=== PATIENT | male | born 1985 | race Two or more races ===

== ENCOUNTER 2018-02-23 04:37 | Emergency (ER) | payer OTHER ==
[~2018-02-23] VITALS: Ht 170.2 cm; Wt 77.1 kg
[~2018-02-23 04:37] MED LIST: BACITRACIN15 GM TOPIC; IBUPROFEN600 MG ORAL; NKM
[2018-02-23 04:55] VITALS: BP 155/104
--- NOTE | 2018-02-23 04:57 | Emergency Room Report ---
History of Present Illness General Chief Complaint: Pain Source: Patient Present Illness HPI Is a 32-year-old male who is right-hand dominant. He presents with chief complaint of right hand swelling and pain. Onset yesterday. He was arrested yesterday when he woke up in [place] he said he noticed some pain in his right and that finger. Now is getting more swollen and painful. No trauma that he can think of. Also pain radiating to his body. No fever chills but no nausea no vomiting. Pain is 7 out of 10. Worse with movement. No other injury. Allergies: Coded Allergies: No Known Allergies (Unverified , 09/04/15) Patient History Past Medical History: see triage record, old chart reviewed Past Surgical History: none Pertinent Family History: none Social History: Denies: smoking Immunizations: other Reviewed Nursing Documentation: PMH: Agreed; PSxH: Agreed Nursing Documentation-PMH Hx Asthma: Yes - asthma Review of Systems Eye: Denies: eye pain, blurred vision ENT: Denies: ear pain, nose congestion, throat swelling Respiratory: Denies: cough, shortness of breath Cardiovascular: Denies: chest pain, palpitations Gastrointestinal: Denies: abdominal pain, diarrhea, nausea, vomiting Musculoskeletal: Reports: joint pain, joint swelling; Denies: back pain Skin: Denies: rash Neurological: Denies: headache, numbness Endocrine: Denies: increased thirst, increased urine Hematologic/Lymphatic: Denies: easy bruising All Other Systems: negative except mentioned in HPI Physical Exam Vital Signs Date Time Temp Pulse Resp B/P (MAP) Pulse Ox O2 Delivery O2 Flow Rate FiO2 02/23/18 04:39 98.1 100 14 155/104 97 Room Air 98.1 vitals with high blood pressure Sp02 EP Interpretation: reviewed, normal General Appearance: well appearing, no apparent distress, alert Head: normocephalic, atraumatic Eyes: bilateral eye PERRL, bilateral eye EOMI ENT: hearing grossly normal, normal pharynx Neck: full range of motion, supple, no meningismus Respiratory: chest non-tender, lungs clear, normal breath sounds Cardiovascular #1: regular rate, rhythm, no murmur Gastrointestinal: normal bowel sounds, non tender, no mass, no organomegaly, no bruit, non-distended Musculoskeletal: back normal, gait/station normal, normal range of motion, other - Right hand: Some mild edema and tenderness. Most of the pain appeared to be over the proximal phalanx the dorsal aspect of his index finger. Tender to palpation. Able to bend the finger. Neurologic: normal inspection, alert, oriented x3 Psychiatric: mood/affect normal Skin: warm/dry Procedures Incision and Drainage Incision and Drainage : Consent: Verbal Site: right index finger Blade Size: 11 I & D Procedure: betadine prep, sterile drapes applied, sterile dressing applied Anesthesia: 1% Lidocaine Volume Anesthetic (ccs): 2 Patient Tolerated: Well Complications: None Progress Area clean with Betadine. Local anesthetic 1% lidocaine without epinephrine injected. I made a 1 cm incision. There was small amount of purulent discharge. Patient felt better. No complication. Patient tolerated procedure without a problem. Dressing done. Medical Decision Making Diagnostic Impression: Primary Impression: Abscess of finger of right hand ER Course Patient with an abscess of his right index finger. No deep infection indicate tenosynovitis. Other X-Ray Diagnostic Results Other X-Ray Diagnostic Results : X-Ray ordered: right-hand x-rays # of Views/Limited Vs Complete: 3 View Indication: Pain EP Interpretation: Yes Interpretation: no dislocation, no soft tissue swelling, other - old fifth metacarpal bone fracture Impression: No acute disease Electronically Signed by: Kamari Chung MD Last Vital Signs Date Time Temp Pulse Resp B/P (MAP) Pulse Ox O2 Delivery O2 Flow Rate FiO2 02/23/18 04:55 98.1 100 14 155/104 97 Room Air 98.1 Status: improved Disposition: HOME, SELF-CARE Condition: Stable Scripts Ibuprofen* (MOTRIN*) 600 Mg Tablet 600 MG ORAL THREE TIMES A DAY, #30 TAB 0 Refills Prov: Kamari Chung MD 02/23/18 Trimethoprim/Sulfamethoxazole 160/800* (BACTRIM DS TABLET*) 1 Each Tablet 1 TAB ORAL Q12H, #14 TAB 0 Refills Prov: Kamari Chung MD 02/23/18 Additional Instructions: Follow-up with your DrJorge Luis in 2-3 days for recheck. Return if symptom worsen. Kamari Chung MD Feb 23, 2018 04:57
[2018-02-23] MEDS ORDERED: BACTRIM DS TAB1 EAC1 ORAL (05:40)
[2018-02-23] MEDS ORDERED: IBUPROFEN600 MG ORAL (05:40)
[2018-02-23] MEDS ORDERED: Norco 5mg/325mg tab ORAL ONE (05:45)
[2018-02-23] MEDS ORDERED: Bactrim-DS 1 tab ORAL ONE (05:45)
[2018-02-23 05:53] VITALS: BP 148/95
--- NOTE | 2018-02-23 06:06 | Diagnostic Imaging Report ---
3 VIEW RIGHT HAND: HISTORY: 32-year-old male with pain following trauma. COMPARISON: None. FINDINGS: No acute fracture or joint malalignment is identified. Old, mildly displaced fourth and fifth metacarpal shaft fractures are noted. There is probable at least mild soft tissue swelling in the dorsal MCP joint region. No evidence of significant arthritis. IMPRESSION: No acute fracture identified; old fourth and fifth metacarpal shaft fractures noted.
== END 2018-02-23 06:30 | disposition home or self-care (01) ==
LOC: EMR 06:05
DX: L02.511 Cutaneous abscess of right hand (principal)
CPT/HCPCS: 10060; 99283

== ENCOUNTER 2018-05-28 00:30 | Emergency (ER) | payer OTHER ==
[~2018-05-28] VITALS: Ht 170.2 cm; Wt 74.8 kg
[~2018-05-28 00:30] MED LIST changes: +BACTRIM DS TAB1 EAC1 ORAL
[2018-05-28 00:41] VITALS: BP 140/84
--- NOTE | 2018-05-28 00:41 | NUR ---
ED Nurse Note: Patient presents with flu like symptoms and body aches.
[2018-05-28] MEDS ORDERED: NKM (00:45)
[2018-05-28] MEDS ORDERED: Acetaminophen 500mg (ES) tab ORAL ONE (01:15)
[2018-05-28] MEDS ORDERED: Albuterol/Ipratropium 3ml neb HHN ONE (01:15)
[2018-05-28] MEDS ORDERED: TAMIFLU75 MG ORAL (01:20)
[2018-05-28] MEDS ORDERED: PREDNISONE20 MG ORAL (01:20)
[2018-05-28] MEDS ORDERED: IBUPROFEN600 MG ORAL (01:20)
[2018-05-28] MEDS ORDERED: ALBUTEROL SULF8.5 GM INH (01:20)
--- NOTE | 2018-05-28 01:20 | Emergency Room Report ---
History of Present Illness General Chief Complaint: Flu Like Symptoms Source: Patient Present Illness HPI Is a 33-year-old male with history of asthma. He presents with chief complaint of flulike illness. Onset for 1 day. He has fever chills. Body pain and pain is 9 out of 10. Has nausea but no vomiting. Coughing is nonproductive in nature. Has wheezing. Sick contact neighbor. Nothing made it better. Inspiration made it worse. He been using inhaler more. Almost out of it. Allergies: Coded Allergies: No Known Allergies (Unverified , 09/04/15) Patient History Past Medical History: see triage record, old chart reviewed, asthma Past Surgical History: none Pertinent Family History: none Social History: Denies: smoking Immunizations: other Reviewed Nursing Documentation: PMH: Agreed; PSxH: Agreed Nursing Documentation-PMH Past Medical History: No History, Except For Hx Asthma: Yes - asthma Review of Systems Constitutional: Reports: chills, fever, malaise, weakness Eye: Denies: eye pain, blurred vision ENT: Denies: ear pain, nose congestion, throat swelling Respiratory: Reports: cough, shortness of breath, wheezing Cardiovascular: Denies: chest pain, palpitations Gastrointestinal: Reports: nausea Musculoskeletal: Denies: back pain, joint pain Skin: Denies: rash Neurological: Denies: headache, numbness Endocrine: Denies: increased thirst, increased urine Hematologic/Lymphatic: Denies: easy bruising All Other Systems: negative except mentioned in HPI Physical Exam Vital Signs Date Time Temp Pulse Resp B/P (MAP) Pulse Ox O2 Delivery O2 Flow Rate FiO2 05/28/18 00:41 98.8 118 20 137/85 95 Room Air vitals with tachycardia Sp02 EP Interpretation: reviewed, normal General Appearance: well appearing, no apparent distress, alert Head: normocephalic, atraumatic Eyes: bilateral eye PERRL, bilateral eye EOMI ENT: hearing grossly normal, normal pharynx Neck: full range of motion, supple, no meningismus Respiratory: chest non-tender, wheezing Cardiovascular #1: regular rate, rhythm, no murmur Gastrointestinal: normal bowel sounds, non tender, no mass, no organomegaly, no bruit, non-distended Musculoskeletal: back normal, gait/station normal, normal range of motion Psychiatric: mood/affect normal Skin: warm/dry Medical Decision Making Diagnostic Impression: Primary Impression: Influenza-like symptoms Additional Impression: Asthma exacerbation Qualified Codes: J45.21 - Mild intermittent asthma with (acute) exacerbation ER Course Patient with flulike illness. Because of his asthma, will go to put him on Tamiflu. No evidence any sepsis, pneumonia, ACS, PE to name a few. Better after breathing treatment. Steroids given here. We'll discharge home. Last Vital Signs Date Time Temp Pulse Resp B/P (MAP) Pulse Ox O2 Delivery O2 Flow Rate FiO2 05/28/18 00:41 98.8 118 20 137/85 95 Room Air Status: improved Disposition: HOME, SELF-CARE Condition: Stable Scripts Oseltamivir Phosphate (Tamiflu) 75 Mg Capsule 75 MG ORAL TWICE A DAY, #10 CAP Prov: Kamari Chung MD 05/28/18 Prednisone* (PREDNISONE*) 20 Mg Tablet 40 MG ORAL DAILY, #8 TAB Prov: Kamari Chung MD 05/28/18 Ibuprofen* (MOTRIN*) 600 Mg Tablet 600 MG ORAL THREE TIMES A DAY, #30 TAB 0 Refills Prov: Kamari Chung MD 05/28/18 Albuterol Sulfate* (ALBUTEROL SULFATE MDI*) 8.5 Gm Hfa.aer.ad 2 PUFF INH Q4HR PRN for cough/wheezing, #1 EA 0 Refills Prov: Kamari Chung MD 05/28/18 Additional Instructions: Increase fluids. Rest. Follow-up with your DrJorge Luis in 3-5 days for recheck. Return if worse. Kamari Chung MD May 28, 2018 01:20
--- NOTE | 2018-05-28 01:37 | NUR ---
ED Nurse Note: Patient is resting post breathing treatment and states that he feels alot better now.
--- NOTE | 2018-05-28 02:26 | NUR ---
ED Nurse Note: Patient cleared for discharge by Dr. romo. patient verbalized understanding of discharge instructions. Patient ID band removed. Patient ambulatory with steady gait, no s/s of acute distress. patient plans to drive [place] home.
[2018-05-28 02:27] VITALS: BP 140/84
== END 2018-05-28 02:28 | disposition home or self-care (01) ==
LOC: EMR 01:06
DX: J45.21 Mild intermittent asthma with (acute) exacerbation (principal); R06.2 Wheezing; R11.0 Nausea
CPT/HCPCS: 94640; 94664; 99284; J7512; J7620

== ENCOUNTER 2018-07-21 13:02 | Emergency (ER) | payer OTHER ==
[~2018-07-21] VITALS: Ht 170.2 cm; Wt 79.4 kg
[~2018-07-21 13:02] MED LIST changes: +ALBUTEROL SULF8.5 GM INH; +PREDNISONE20 MG ORAL; +TAMIFLU75 MG ORAL
[2018-07-21 13:06] VITALS: BP 149/95
--- NOTE | 2018-07-21 13:16 | NUR ---
ED Nurse Note: Pt came in due to left and right hand animal bite. Noted multiple scratches and bite on bilateral hand. No active bleeding.
--- NOTE | 2018-07-21 13:20 | NUR ---
ED Nurse Note: department of health animal bite form filled out and will fax it over.
[2018-07-21] MEDS ORDERED: Azithromycin 250mg tab ORAL ONE (13:30)
[2018-07-21] MEDS ORDERED: Tetanus/Diptheria/Pertussis Vaccine 0.5ml Syr IM ONE (13:30)
[2018-07-21] MEDS ORDERED: Clindamycin 150mg cap ORAL ONE (13:30)
[2018-07-21] MEDS ORDERED: VIBRAMYCIN100 MG ORAL (14:15)
[2018-07-21] MEDS ORDERED: NORCO 5-325 TA1 EACH ORAL (14:15)
[2018-07-21] MEDS ORDERED: ZITHROMAX250 MG ORAL (14:15)
[2018-07-21] MEDS ORDERED: CLINDAMYCIN HC150 MG ORAL (14:15)
[2018-07-21] MEDS ORDERED: IBUPROFEN600 MG ORAL (14:15)
[2018-07-21 14:17] VITALS: BP 135/92
--- NOTE | 2018-07-21 14:17 | NUR ---
ED Nurse Note: Pt cleared by health care provider for discharge. DC instructions/prescription was given and explained to pt and verbalized understanding of teachings. All medical transcriber such as ID band removed. Pt is AAO x4, ambulatory and left with all personal belongings.
--- NOTE | 2018-07-21 21:07 | Emergency Room Report ---
History of Present Illness General Chief Complaint: Animal Bite Source: Patient Present Illness HPI The patient is a 33-year-old male presenting for cat bite and scratches. He states that he was going home earlier this morning and an unknown cat attacked his hands. Pain is a 5 out of 10 throbbing sensation to both hands. He denies any other injury. Immunization history of cat is unknown. Last tetanus shot is unknown. He denies other symptoms including fever, chills, rash, numbness Allergies: Coded Allergies: No Known Allergies (Unverified , 09/04/15) Patient History Past Medical History: see triage record Pertinent Family History: none Reviewed Nursing Documentation: PMH: Agreed; PSxH: Agreed Nursing Documentation-PMH Past Medical History: No History, Except For Hx Asthma: Yes - asthma Review of Systems All Other Systems: negative except mentioned in HPI Physical Exam Vital Signs Date Time Temp Pulse Resp B/P (MAP) Pulse Ox O2 Delivery O2 Flow Rate FiO2 07/21/18 13:06 98.2 17 149/95 99 Room Air 07/21/18 13:06 105 Sp02 EP Interpretation: reviewed, normal General Appearance: no apparent distress, alert, GCS 15, non-toxic Head: normocephalic, atraumatic Musculoskeletal: back normal, gait/station normal, normal range of motion Neurologic: alert, oriented x3, responsive, motor strength/tone normal, sensory intact, speech normal Psychiatric: judgement/insight normal, memory normal, mood/affect normal, no suicidal/homicidal ideation Skin: abrasions - L and R hand/fingers, laceration - L hand 3rd digit distal Medical Decision Making PA Attestation Dr. Murillo is my supervising physician. Patient management was discussed with my supervising physician Diagnostic Impression: Primary Impression: Cat scratch Additional Impression: Cat bite Qualified Codes: W55.01XA - Bitten by cat, initial encounter ER Course The patient is a 33-year-old male presenting for cat bite and scratches. DDx considered but not limited to: cellulitis, tendon injury, abrasion, laceration, among others PE: Afebrile. NAD Multiple abrasions to bilat hands and fingers with some swelling to L hand thenar prominence. No erythema. No DC Full AROM of bilat wrists and fingers intact SILT Both hands are copiously irrigated with NS and betadine Pt is given tetanus shot He is given first dose of abx here including azithromycin, clindamycin, doxycycline The patient is discharged home with these antibiotics and is told that he needs to complete them as directed. He is given strict ER precautions to return including if pain worsens or continues, he sees any redness, he sees any discharge, swelling increases, he gets a fever, or for any other reason He was told to follow-up with primary doctor as soon as possible Last Vital Signs Date Time Temp Pulse Resp B/P (MAP) Pulse Ox O2 Delivery O2 Flow Rate FiO2 07/21/18 14:17 97.8 77 18 135/92 100 Room Air Status: improved Disposition: HOME, SELF-CARE Condition: Improved Scripts Hydrocodone Bit/Acetaminophen 5-325* (NORCO 5-325*) 1 Each Tablet 1 TAB ORAL Q6H PRN for For Pain, #10 TAB 0 Refills Prov: TERZIAN,FORREST P.A. 07/21/18 Clindamycin Hcl* (CLINDAMYCIN HCL*) 150 Mg Capsule 450 MG ORAL TID, #63 CAP Prov: TERZIAN,FORREST P.A. 07/21/18 Doxycycline Hyclate* (VIBRAMYCIN*) 100 Mg Capsule 100 MG ORAL EVERY 12 HOURS, #14 CAP 0 Refills Prov: TERZIAN,FORREST P.A. 07/21/18 Azithromycin* (ZITHROMAX*) 250 Mg Tablet 250 MG ORAL DAILY, #4 TAB Prov: TERZIAN,FORREST P.A. 07/21/18 Ibuprofen* (MOTRIN*) 600 Mg Tablet 600 MG ORAL Q8H PRN for For Pain, #30 TAB 0 Refills Prov: TERZIAN,FORREST P.A. 07/21/18 Referrals: [facility],REFERRING (PCP) [facility] Open 24 hour /7 days a week by Appointment Only [address] [address] Patient Instructions: Cat-Scratch Disease, Animal Bite Additional Instructions: I discussed my findings with the patient. All questions and concerns have been answered. Treatment and medication compliance have been addressed. I advised the patient that they need to follow up with primary doctor as soon as possible. Return to ER if symptoms worsen, new symptoms arise such as fever, rash, numbness, or if needed for any reason. Patient verbalized understanding of discharge instructions. FORREST AGUILAR Jul 21, 2018 21:07
== END 2018-07-21 14:17 | disposition home or self-care (01) ==
LOC: EMR 13:45
DX: S60.512A Abrasion of left hand, initial encounter (principal); S60.511A Abrasion of right hand, initial encounter; S60.419A Abrasion of unspecified finger, initial encounter; S61.213A Laceration without foreign body of left middle finger without damage to nail, initial encounter; W55.03XA Scratched by cat, initial encounter; Y92.89 Other specified places as the place of occurrence of the external cause; Z23 Encounter for immunization; J45.909 Unspecified asthma, uncomplicated
CPT/HCPCS: 90471; 90715; 99283; Q0144

== ENCOUNTER 2018-07-22 17:59 | Emergency (ER) | payer OTHER ==
[~2018-07-22] VITALS: Ht 170.2 cm; Wt 79.4 kg
[~2018-07-22 17:59] MED LIST changes: +CLINDAMYCIN HC150 MG ORAL; +NORCO 5-325 TA1 EACH ORAL; +VIBRAMYCIN100 MG ORAL; +ZITHROMAX250 MG ORAL
[2018-07-22 18:05] VITALS: BP 153/103
--- NOTE | 2018-07-22 18:28 | NUR ---
ED Nurse Note: AMBULATED IN TO ER DUE TO SWELLING AND PAIN ON LEFT HAND. PER PT, HE CAME TO [facility] ER YESTERDAY BUT PAIN INCREASED.
[2018-07-22] MEDS ORDERED: Ketorolac 30mg Inj IV ONE (18:30)
[2018-07-22] MEDS ORDERED: Ampicillin/Sulbactam Sod 3 GM in NS 110 ML IVPB ONE (18:30)
--- NOTE | 2018-07-22 18:33 | Emergency Room Report ---
History of Present Illness General Chief Complaint: Pain Source: Patient Present Illness HPI Patient was seen yesterday for Bites to his left hand. In addition to being bitten he also fell onto his left hand and has swelling in the hand at this time. The pain is severe. He's been smoking cannabis, taking [place] and was given a prescription for antibiotics and Motrin but hasn't taken them. The pain is severe at this time, pain is rated 9/10 aching and swelling without radiation.. Denies any numbness. He's got bites on both sides of the of his hand. He's able to move his wrist without pain. He is unable to make a fist. He drove himself here. He states he has broken bones in the past. He believes he may have hit his hand and may have broken a finger. He denies fevers or chills. He received 3 antibiotics yesterday and also a tetanus shot. This is the history from yesterday: The patient is a 33-year-old male presenting for cat bite and scratches. He states that he was going home earlier this morning and an unknown cat attacked his hands. Pain is a 5 out of 10 throbbing sensation to both hands. He denies any other injury. Immunization history of cat is unknown. Last tetanus shot is unknown. He denies other symptoms including fever, chills, rash, numbness Allergies: Uncoded Allergies: CATS (Allergy, Unknown, 07/22/18) Patient History Past Medical History: see triage record Social History: Reports: smoking, drug use Social History Narrative Drove himself here Reviewed Nursing Documentation: PMH: Agreed; PSxH: Agreed Nursing Documentation-PM Past Medical History: No History, Except For Hx Asthma: Yes - asthma Review of Systems All Other Systems: negative except mentioned in HPI Physical Exam Vital Signs Date Time Temp Pulse Resp B/P (MAP) Pulse Ox O2 Delivery O2 Flow Rate FiO2 07/22/18 18:05 97.9 97 16 153/103 96 Room Air Musculoskeletal: decreased range of mation - Unable to make fist due to pain. No tendon tenderness with passive range of motion., swelling - Left back of hand Neurologic: alert, oriented x3, sensory intact, motor weakness - Hand due to pain Psychiatric: mood/affect normal Skin: other - Abrasions, scratches and bite gibson on fingers. There is minimal erythema in the dorsum of the hand. Medical Decision Making Diagnostic Impression: Primary Impression: Cellulitis of left hand Additional Impressions: Cat bite Qualified Codes: W55.01XD - Bitten by cat, subsequent encounter Cat scratch ER Course Patient presents with increased swelling and pain in his left hand after being bitten and scratched by a cat yesterday. He has not filled his prescriptions. Differential includes cellulitis, fracture, contusion amongst others. Exam is against tendon infection. Initially the patient agreed to IV antibiotics, IV analgesia and lab work. Patient refused IV and labs. Also he just wanted p.o. pain medication. He did agree to x-ray. X-ray with soft tissue swelling without fracture. Discussed with patient my high suspicion of serious infection in the hand. He is still refusing IV treatment and evaluation with labs. I told him he could lose function of his hand due to severe infection. He still refuses and signed out AGAINST MEDICAL ADVICE. Advised him to return as soon as possible if he changed his mind. Other X-Ray Diagnostic Results Other X-Ray Diagnostic Results : X-Ray ordered: Left hand # of Views/Limited Vs Complete: 3 View Indication: Pain EP Interpretation: Yes Interpretation: no dislocation, no fractures, other - Soft tissue swelling Impression: Other Electronically Signed by: Electronically signed by Geoff Templeton MD Last Vital Signs Date Time Temp Pulse Resp B/P (MAP) Pulse Ox O2 Delivery O2 Flow Rate FiO2 07/22/18 18:05 97.9 97 16 153/103 96 Room Air Status: improved Disposition: AGAINST MEDICAL ADVICE Condition: Stable Geoff Templeton MD Jul 22, 2018 18:33
[2018-07-22 19:20] VITALS: BP 146/88
[2018-07-22 19:25] VITALS: BP 146/88
--- NOTE | 2018-07-22 19:25 | NUR ---
ER DISCHARGE NOTE: Patient AMA, pt is aox4, on room air, with stable vital signs. pt id band and iv site removed without complications. pt is able to ambulate with steady gait. pt took all belongings.
--- NOTE | 2018-07-23 11:13 | Diagnostic Imaging Report ---
Indication: Trauma, pain, swelling Technique: 3 views left hand Comparison: none Findings: No acute fractures. No dislocations. The joint spaces are preserved. There is dorsal soft tissue swelling. Impression: Negative
== END 2018-07-22 19:25 | disposition left against medical advice (07) ==
LOC: EMR 18:20
DX: L03.114 Cellulitis of left upper limb (principal); S60.419A Abrasion of unspecified finger, initial encounter; W55.03XA Scratched by cat, initial encounter; Y92.89 Other specified places as the place of occurrence of the external cause; J45.909 Unspecified asthma, uncomplicated
CPT/HCPCS: 96365; 96375; 99284